=== PATIENT | male | born 1990 | race Caucasian/White ===

== ENCOUNTER 2016-09-06 09:24 | Emergency (ER) | payer OTHER ==
[2016-09-06] MEDS ORDERED: PROCHLORPERAZINE 5 MG/ML 2 ML VIAL ONE (10:41)
[2016-09-06] MEDS ORDERED: DIPHENHYDRAMINE HCL 50 MG/1 ML VIAL ONE (10:41)
[2016-09-06] MEDS ORDERED: LACTATED RINGERS 1,000 ML ONE (10:42)
[2016-09-06 10:47] LABS: ABSOLUTE NEUTROPHIL COUNT 6.1 K/mm3 (1.8-7.7); BASO # 0.1 K/mm3 (0.0-0.2); BASO % 0.7 % (0.2-1.0); EOS # 0.2 (0.0-0.5); EOS % 2.8 % (0.9-2.9); HEMOGLOBIN 16.9 gm/l (14.0-18.0); IMM NEUT% 0.2 % (0-1); LYMPH # 1.4 (1.0-4.8); LYMPH % 17.5 % (15-45); MEAN CELL VOLUME 87.6 fl (80.0-94.0); MEAN CORPUSCULAR HEMOGLOBIN 29.6 pg (27.0-31.0); MEAN CORPUSCULAR HGB CONC 33.8 g/dl (33.0-37.0); MEAN PLATELET VOLUME 10.4 fl (7.4-10.4); MONO # 0.3 (0.0-0.8); MONO % 3.4 % (4-12); NEUT % 75.4 % (43-75); PLATELET COUNT 238 K/mm3 (130-400)
[2016-09-06 11:07] LABS: ALB/GLOB RATIO 1.8 (>1.0); CALCIUM 10.1 mg/dL (8.6-10.3)
--- NOTE | 2016-09-06 11:37 | RAD ---
ABDOMEN FLAT AND UPRIGHT COMPARISON: None HISTORY: Nausea and vomiting. No bowel movement. FINDINGS: Views: Abdomen upright and supine. Lung bases: Normal. Free air: None Bowel gas pattern: Normal Organomegaly: None Soft tissue calcification: None Bones: Normal. IMPRESSION: Normal study. There is no radiographic evidence of bowel obstruction or constipation.
== END 2016-09-06 12:06 | disposition home or self-care (01) ==
LOC: ED 09:24
DX: R11.2 Nausea with vomiting, unspecified (principal); R10.9 Unspecified abdominal pain
CPT/HCPCS: 83690; 85025; 80053; 74020; 96375; 99283 ×2; 96374; 96361; J1200; J0780; J7120